=== PATIENT | female | born 1965 | race Hispanic/Latino ===

== ENCOUNTER 2018-07-02 08:45 | Emergency (ER) | payer OTHER ==
[~2018-07-02] VITALS: Ht 149.9 cm; Wt 77.1 kg
--- OUTSIDE RECORDS SUMMARY | 2018-07-02 08:48 | XMS REPORT | Summary of Care ---
Author Author [facility] Organization [facility] Address Unknown Phone Unavailable Encounter HQ Ronna(FIN) [id number] Date(s): 04/30/17 - 05/01/17 [facility] [address], [address] [place] [address] [phone] Vital Signs No data available for this section Problem List Condition Effective Dates Status Health Status Informant Body mass index Active (BMI) of 34.0 to 34.9 in adult(Confirmed) Acute Active diverticulitis(Confi rmed) H/O laparoscopic Active adjustable gastric banding(Confirmed)1 History of colonic Active polyps(Confirmed) Type 2 diabetes Active mellitus with hyperglycemia(Confir med) Hypertriglyceridemia Active (Confirmed) Urinary Active frequency(Confirmed) Insomnia(Confirmed) Active Headache, Resolved migraine(Confirmed) Obesity(Confirmed) Active Pain of right upper Active extremity(Confirmed) Palpitations(Confirm Resolved ed) Annual physical Active exam(Confirmed) 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) Screening for colon Active cancer(Confirmed) Thyroid disorder Active screen(Confirmed) Depression, major, Active single episode, moderate(Confirmed) Calcium oxalate Active crystals in urine(Confirmed) 1lap band Allergies, Adverse Reactions, Alerts Substance Reaction Severity Status losartan back pain Active Medications No data available for this section Results No data available for this section Immunizations No data available for this section Procedures Procedure Date Related Diagnosis Body Site Status Screening mammography of bilateral breasts1 07/18/17 Completed Repair of rectocele 02/27/17 Completed Colonoscopy2 10/16/16 Completed Screening mammography3 03/27/16 Completed Laparoscopic adjustable gastric banding 2013 Completed Arthroscopy of knee4 Completed Bilateral tubal ligation Completed Cholecystectomy Completed Hysterectomy Completed Procedure on elbow joint5 Completed 1IMPRESSION: BENIGN RECOMMENDATION:There is no mammographic evidence of malignancy. A 1 year screeni ng mammogram is recommended.(07/19/2018) 2severe diverticulosis, hemorrhoids, repeat 10 years 3negative 4Right knee 5Right elbow Social History Social History Type Response Substance Abuse Use: None. Employment/School Status: Employed. 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 Alcohol Never, Previous treatment: None. Smoking Status Never smoker; Exposure to Tobacco Smoke None; Cigarette Smoking Last 365 Days No; Reg Smoking Cessation Counseling No entered on: 05/07/17 Assessment and Plan No data available for this section
--- OUTSIDE RECORDS SUMMARY | 2018-07-02 08:48 | XMS REPORT | Summary of Care ---
Author Author [facility] Organization [facility] Address Unknown Phone Unavailable Encounter HQ Ronna(FIN) [id number] Date(s): 05/29/18 - 05/30/18 [facility] [address], [address] [place], [place] [address]- [phone] Vital Signs No data available for this section Problem List Condition Effective Dates Status Health Status Informant Body mass index Active (BMI) of 34.0 to 34.9 in adult(Confirmed) Leg Active cramps(Confirmed) Depression(Confirmed Resolved ) Acute Resolved diverticulitis(Confi rmed) Epigastric Active fullness(Confirmed) Grieving(Confirmed) Active H/O laparoscopic Active adjustable gastric banding(Confirmed)1 History of colonic Active polyps(Confirmed) Hypertriglyceridemia Active (Confirmed) Hypertriglyceridemia Active (Confirmed) Insomnia(Confirmed) Active Low back Active pain(Confirmed) Headache, Resolved migraine(Confirmed) Disrupted sleep-wake Active cycle(Confirmed) Obesity(Confirmed) Active Palpitations(Confirm Resolved ed) Encounter for Active immunization(Confirm ed) Annual physical Active exam(Confirmed) Prolapse of female Resolved pelvic organs(Confirmed) Screening for colon Active cancer(Confirmed) Depression, major, Active single episode, moderate(Confirmed) Type 2 diabetes Active mellitus without complications(Confir med) Calcium oxalate Resolved crystals in urine(Confirmed) Vitamin D Active deficiency(Confirmed ) 1lap band Allergies, Adverse Reactions, Alerts Substance Reaction Severity Status sulfa drugs Active nystatin Active losartan back pain Active Medications fenofibrate 54 mg oral tablet =1 tab, PO, Daily, # 90 tab, 1 Refill(s), Pharmacy: [facility] [place] [id number] Start Date: 05/29/18 Status: Ordered metFORMIN 1000 mg oral tablet 1,000 mg, PO, BID, # 180 tab, 1 Refill(s), Pharmacy: [facility] [place] [id number] Start Date: 05/29/18 Stop Date: 11/25/18 Status: Ordered Results No data available for this section Immunizations Given and Recorded Vaccine Date Status Refusal Reason influenza virus vaccine, inactivated1 01/21/18 Given 1Result Comment: Patient waited 15 min with no reaction. Procedures Procedure Date Related Diagnosis Body Site Status Removal of gastric band1 03/28/18 Completed Esophagogastroduodenoscopy2 03/14/18 Completed Influenza vaccination 01/21/18 Completed Screening mammography of bilateral breasts3 07/18/17 Completed Diabetic retinal eye exam4 2017 Completed Repair of rectocele 02/27/17 Completed Colonoscopy5 10/16/16 Completed Screening mammography6 03/27/16 Completed Laparoscopic adjustable gastric banding 2013 Completed Arthroscopy of knee Completed Bilateral tubal ligation Completed Cholecystectomy Completed Hysterectomy Completed Procedure on elbow joint8 Completed 1PREOPERATIVE DIAGNOSES: Morbid obesity, obstructive sleep apnea, type 2 diabetes mellitus, hypercholeste rolemia, severe gastroesophageal reflux disease and dysphagia secondary to restr ictive gastric band device secondary to posterior gastric band slippage. POSTOPERATIVE DIAGNOSES: Morbid obesity, obstructive sleep apnea, type 2 diabetes mellitus, hypercholeste rolemia, severe gastroesophageal reflux disease and dysphagia secondary to restr ictive gastric band device secondary to posterior gastric band slippage, and ext ensive peritoneal adhesions. OPERATION: Laparoscopic removal of gastric band and gastric band port with lysis of extensi ve peritoneal adhesions. 2GERD/SUPERFICIAL HEMORRHAGIC GASTRITIS.HIATAL HERNIA 3IMPRESSION: BENIGN RECOMMENDATION:There is no mammographic evidence of malignancy. A 1 year screeni ng mammogram is recommended.(07/19/2018) 4[facility] (Dr. Zeng) 5severe diverticulosis, hemorrhoids, repeat 10 years 6negative 7Right knee 8Right elbow Social History Social History Type Response Substance Abuse Use: None. Employment/School Status: Employed. 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 Alcohol Never, Previous treatment: None. Smoking Status Never smoker; Exposure to Tobacco Smoke None; Cigarette Smoking Last 365 Days No; Reg Smoking Cessation Counseling No entered on: 05/27/18 Assessment and Plan No data available for this section
--- OUTSIDE RECORDS SUMMARY | 2018-07-02 08:48 | XMS REPORT | Summary of Care ---
Author Author [facility] Organization [facility] Address Unknown Phone Unavailable Encounter LORENZA Friend(AMY) [id number] Date(s): 07/30/17 - 07/30/17 [facility] [address] [place] [phone] Discharge Disposition: Home or Self Care Attending Physician: Titus Mcfarland MD Vital Signs No data available for this [...] Use: None. Employment/School Status: Employed. 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 Alcohol Never, Previous treatment: None. Smoking Status Never smoker; Exposure to Tobacco Smoke None; Cigarette Smoking Last 365 Days No; Reg Smoking Cessation Counseling No entered on: 05/07/17 Assessment and Plan No data available for this section
--- OUTSIDE RECORDS SUMMARY | 2018-07-02 08:48 | XMS REPORT | Summary of Care ---
Author Author [facility] Organization [facility] Address Unknown Phone Unavailable Encounter HQ Ronna(FIN) [id number] Date(s): 05/27/18 - 05/27/18 [facility] [address], [address] [place], [place] [address]- [phone] Discharge Disposition: Home or Self Care Attending Physician: Irish Jaramillo MD Vital Signs Most recent to 1 oldest [Reference Range]: Height 149.86 cm (05/27/18 1:52 PM) Temperature Oral 98 DegF [96.4-99.1 DegF] (05/27/18 1:52 PM) Blood Pressure 122/77 mmHg [90-140/60-90 mmHg] (05/27/18 1:52 PM) Respiratory Rate 16 BRMIN [14-20 BRMIN] (05/27/18 1:52 PM) Peripheral Pulse 71 bpm Rate [60-100 bpm] (05/27/18 1:52 PM) Weight 76.42 kg (05/27/18 1:52 PM) Body Mass Index 34.03 m2 (05/27/18 1:52 PM) Problem List Condition Effective Dates Status Health [...] Daily, # 90 tab, 1 Refill(s), Pharmacy: [facility] [id number] Start Date: 05/27/18 Stop Date: 05/29/18 Status: Completed metFORMIN 1000 mg oral tablet 1,000 mg, PO, BID, X 90 day, # 180 tab, 1 Refill(s), Pharmacy: [facility] [id number] Start Date: 05/27/18 Stop Date: 05/29/18 Status: Completed Trulicity Pen 0.75 mg/0.5 mL subcutaneous solution 0.75 mg, SUB-Q, Q7D, # 12 pen(s), 1 Refill(s), Pharmacy: [facility] [id number] Start Date: 05/27/18 Status: Ordered Trulicity Pen 0.75 mg/0.5 mL subcutaneous solution 0.75 mg, SUB-Q, Q7D, # 12 pen(s), 1 Refill(s), Pharmacy: [facility] [id number] Start Date: 03/29/18 Stop Date: 05/27/18 Status: Discontinued zolpidem 10 mg oral tablet 10 mg=1 tab, PO, Bedtime, PRN for sleep, # 30 tab, 0 Refill(s) Start Date: 05/27/18 Stop Date: 05/27/19 Status: Ordered Results No data available for [...] bilateral breasts3 07/18/17 Completed Diabetic retinal eye exam2017 Completed Repair of rectocele 02/27/17 Completed Colonoscopy5 10/16/16 Completed Screening mammography6 03/27/16 Completed Laparoscopic adjustable gastric banding 2013 Completed Arthroscopy of knee7 Completed Bilateral tubal ligation Completed Cholecystectomy Completed [...] Use: None. Employment/School Status: Employed. 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 Alcohol Never, Previous treatment: None. Smoking Status Never smoker; Exposure to Tobacco Smoke None; Cigarette Smoking Last 365 Days No; Reg Smoking Cessation Counseling No entered on: 05/27/18 Assessment and Plan No data available for this section
--- OUTSIDE RECORDS SUMMARY | 2018-07-02 08:48 | XMS REPORT | Summary of Care ---
Author Author [facility] Organization [facility] Address Unknown Phone Unavailable Encounter HQ Ronna(FIN) [id number] Date(s): 08/22/17 - 08/23/17 [facility] [address], [address] [place] [address]- [phone] Vital Signs No data available for this [...] Severity Status losartan back pain Active Medications acetaminophen-tramadol 325 mg-37.5 mg oral tablet 1 tab, PO, Q8H, PRN Pain, # 40 tab, 0 Refill(s) Start Date: 08/23/17 Stop Date: 08/23/18 Status: Ordered Trulicity Pen 0.75 mg/0.5 mL subcutaneous solution 0.75 mg, SUB-Q, Q7D, # 12 pen(s), 2 Refill(s), Pharmacy: [facility] [id number] Start Date: 08/23/17 Status: Ordered Results No data available for [...] Use: None. Employment/School Status: Employed. 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 Alcohol Never, Previous treatment: None. Smoking Status Never smoker; Exposure to Tobacco Smoke None; Cigarette Smoking Last 365 Days No; Reg Smoking Cessation Counseling No entered on: 05/07/17 Assessment and Plan No data available for this section
--- OUTSIDE RECORDS SUMMARY | 2018-07-02 08:48 | XMS REPORT | Summary of Care ---
Author Author [facility] Organization [facility] Address Unknown Phone Unavailable Encounter LORENZA Friend(AMY) [id number] Date(s): 07/18/17 - 07/18/17 [facility] [address] [place] [phone] Discharge Disposition: Home or Self Care Attending Physician: Irish Jaramillo MD Vital Signs No data available for [...] Procedure Date Related Diagnosis Body Site Status Repair of rectocele 02/27/17 Completed Colonoscopy1 10/16/16 Completed Screening mammography2 03/27/16 Completed Laparoscopic adjustable gastric banding 2013 Completed Arthroscopy of knee3 Completed Bilateral tubal ligation Completed Cholecystectomy Completed Hysterectomy Completed Procedure on elbow joint4 Completed 1severe diverticulosis, hemorrhoids, repeat 10 years 2negative 3Right knee 4Right elbow Social History Social History Type Response Substance Abuse Use: None. Employment/School Status: Employed. 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 Alcohol Never, Previous treatment: None. Smoking Status Never smoker; Exposure to Tobacco Smoke None; Cigarette Smoking Last 365 Days No; Reg Smoking Cessation Counseling No entered on: 05/07/17 Assessment and Plan No data available for this section
--- OUTSIDE RECORDS SUMMARY | 2018-07-02 08:48 | XMS REPORT | Summary of Care ---
Author Author [facility] Organization [facility] Address Unknown Phone Unavailable Encounter HQ Ronna(FIN) [id number] Date(s): 06/27/18 - 06/28/18 [facility] [address] [place] [address] Vital Signs No data available for this section Problem List Condition Effective Dates Status Health Status Informant Acute Active bronchitis(Confirmed ) Body mass index Active (BMI) of 34.0 to 34.9 in adult(Confirmed) Leg Active cramps(Confirmed) Acute Resolved diverticulitis(Confi rmed) Dysuria(Confirmed) Active Grieving(Confirmed) Active H/O laparoscopic Resolved adjustable gastric banding(Confirmed)1 History of colonic Active polyps(Confirmed) Hypertriglyceridemia Active (Confirmed) Insomnia(Confirmed) Active Low back Active pain(Confirmed) Headache, Resolved migraine(Confirmed) Disrupted sleep-wake Active cycle(Confirmed) Obesity(Confirmed) Active Palpitations(Confirm Resolved ed) Encounter for Active immunization(Confirm ed) Annual physical Active exam(Confirmed) Prolapse of female Resolved pelvic organs(Confirmed) Right flank Active pain(Confirmed) Screening for colon Active cancer(Confirmed) Depression, major, Active single episode, moderate(Confirmed) Type 2 diabetes Active mellitus without complications(Confir med) Calcium oxalate Resolved crystals in urine(Confirmed) Vitamin D Active deficiency(Confirmed ) 1lap band Allergies, Adverse Reactions, Alerts Substance Reaction Severity Status sulfa drugs Active nystatin Active losartan back pain Active Medications No data [...] year screeni ng mammogram is recommended.(07/19/2018) 4[facility] (Dr. Zeng) 5severe diverticulosis, hemorrhoids, repeat 10 years 6negative 7Right knee 8Right elbow Social History Social History Type Response Substance Abuse Use: None. Employment/School Status: Employed. 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 Alcohol Never, Previous treatment: None. Smoking Status Never smoker; Exposure to Tobacco Smoke None; Cigarette Smoking Last 365 Days No; Reg Smoking Cessation Counseling No entered on: 06/30/18 Assessment and Plan No data available for this section
--- OUTSIDE RECORDS SUMMARY | 2018-07-02 08:48 | XMS REPORT | Summary of Care ---
Author Author [facility] Organization [facility] Address Unknown Phone Unavailable Encounter HQ Ronna(FIN) [id number] Date(s): 05/07/17 - 05/07/17 [facility] [address], [address] [place] [address] [phone] Discharge Disposition: Home or Self Care Attending Physician: Irish Jaramillo MD Vital Signs Most recent to 1 oldest [Reference Range]: Height 149.86 cm (05/07/17 1:42 PM) Temperature Oral 97.3 DegF [96.4-99.1 DegF] (05/07/17 1:42 PM) Blood Pressure 116/77 mmHg [90-140/60-90 mmHg] (05/07/17 1:42 PM) Respiratory Rate 16 BRMIN [14-20 BRMIN] (05/07/17 1:42 PM) Peripheral Pulse 80 bpm Rate [60-100 bpm] (05/07/17 1:42 PM) Weight 78.636 kg (05/07/17 1:42 PM) Body Mass Index 35.01 m2 (05/07/17 1:42 PM) Problem List Condition Effective Dates Status [...] Severity Status losartan back pain Active Medications lisinopril 5 mg oral tablet 5 mg=1 tab, PO, Daily, # 90 tab, 1 Refill(s), Pharmacy: [facility] [id number] Start Date: 05/07/17 Stop Date: 11/03/17 Status: Ordered Trulicity Pen 0.75 mg/0.5 mL subcutaneous solution 0.75 mg, SUB-Q, Q7D, # 4 pen(s), 3 Refill(s), Pharmacy: [facility] [id number] Start Date: 05/07/17 Status: Ordered Voltaren Topical 1% topical gel 4 gm=1 appl, TOP, BID, Apply 4 grams to right shoulder/arm, # 100 gm, 0 Refill(s ), Pharmacy: [facility] [id number] Start Date: 05/07/17 Status: Ordered Results No data available for [...] Use: None. Employment/School Status: Employed. 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 Alcohol Never, Previous treatment: None. Smoking Status Never smoker; Exposure to Tobacco Smoke None; Cigarette Smoking Last 365 Days No; Reg Smoking Cessation Counseling No entered on: 05/07/17 Assessment and Plan No data available for this section
--- OUTSIDE RECORDS SUMMARY | 2018-07-02 08:48 | XMS REPORT | Summary of Care ---
Author Author [facility] Organization [facility] Address Unknown Phone Unavailable Encounter HQ Ronna(FIN) [id number] Date(s): 04/30/17 - 05/01/17 [facility] [address] [place] [address] [phone] Vital Signs No data available for this [...] Severity Status losartan back pain Active Medications DME Prescription Glucometer strips. Check blood sugar twice daily., MISC, BID, # 100 ea, 5 Refill (s) Start Date: 05/02/17 Status: Ordered Results No data available for [...] Use: None. Employment/School Status: Employed. 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 Alcohol Never, Previous treatment: None. Smoking Status Never smoker; Exposure to Tobacco Smoke None; Cigarette Smoking Last 365 Days No; Reg Smoking Cessation Counseling No entered on: 05/07/17 Assessment and Plan No data available for this section
--- OUTSIDE RECORDS SUMMARY | 2018-07-02 08:48 | XMS REPORT | Summary of Care ---
Author Author [facility] Organization [facility] Address Unknown Phone Unavailable Encounter HQ Ronna(FIN) [id number] Date(s): 05/07/17 - 05/07/17 [facility] [address], [address] [place], [place] [address]- [phone] Discharge Disposition: Home or Self Care Attending [...] Daily, # 90 tab, 1 Refill(s), Pharmacy: [facility] [id number] Start Date: 05/07/17 Stop Date: 11/03/17 Status: Ordered Trulicity Pen 0.75 mg/0.5 mL subcutaneous solution 0.75 mg, SUB-Q, Q7D, # 4 pen(s), 3 Refill(s), Pharmacy: [facility] [id number] Start Date: 05/07/17 Status: Ordered Voltaren Topical 1% topical gel 4 gm=1 appl, TOP, BID, Apply 4 grams to right shoulder/arm, # 100 gm, 0 Refill(s ), Pharmacy: [facility] [id number] Start Date: 05/07/17 Status: Ordered Results No [...] Use: None. Employment/School Status: Employed. 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 Alcohol Never, Previous treatment: None. Smoking Status Never smoker; Exposure to Tobacco Smoke None; Cigarette Smoking Last 365 Days No; Reg Smoking Cessation Counseling No entered on: 05/07/17 Assessment and Plan No data available for this section
--- OUTSIDE RECORDS SUMMARY | 2018-07-02 08:48 | XMS REPORT | Continuity of Care Document ---
Author Author Yolanda greer [facility] Interface Address Unknown Phone Unavailable Problems Problem Status Onset Date Classification Date Reported Comments Source Z029 Active 04/14/2018 [facility] UNK Active 03/18/2018 [facility] Z12.31 - ENCNTR SCREEN MAMMOGRAM FOR MA Active 03/18/2017 [facility] [place] LAPBAND CHECK Active 07/20/2016 [facility] DX: LAPBAND/OVEREATING RORO'S PATIEN Active 06/26/2016 [facility] DX:LAPBAND/OVEREATING RORO'S PATIENT Active 06/25/2016 [facility] LAP BAND ADJ Active 04/12/2016 [facility] F/U Active 04/10/2016 [facility] LAPBAND ADJ Active 03/01/2016 [facility] E66.01=MORBID (SEVERE) OBESITY DUE TO EX Active 11/14/2015 [facility] Body mass index of 34.0 to 34.9 in adult(<span ID="[id number]">Confirmed</span>) Active Problem 06/30/2018 [facility] Acute diverticulitis Resolved Problem 06/30/2018 [facility]KE Greer Araseli H/O laparoscopic adjustable gastric banding<sup>1</sup> Resolved Problem 06/30/2018 lap band [facility] History of colonic polyps Active Problem 06/30/2018 [facility] Type 2 diabetes mellitus with hyperglycemia Active Problem 08/26/2017 [facility] Gre[facility] Hypertriglyceridemia Active Problem 06/30/2018 [facility] Gre[facility] Urinary frequency Active Problem 09/23/2017 [facility]OO[facility] Greer Araseli Insomnia Active Problem 06/30/2018 [facility] Headache, migraine Resolved Problem 06/30/2018 [facility] [place] Obesity Active Problem 06/30/2018 [facility], RAFA[facility] [place],[facility] [place] Pain of right upper extremity Active Problem 09/23/2017 [facility] [place] Palpitations Resolved Problem 06/30/2018 [facility] BROOKE Greer,[facility], [facility] [place] Prolapse of female pelvic organs Resolved Problem 06/30/2018 [facility] [place] Screening for colon cancer Active [facility]/30[facility] Active Problem 09/23/2017 [facility] [place] Depression, major, single episode, moderate Active Problem 06/30/2018 [facility]OO[facility] Greer,[facility], [facility] [place] Calcium oxalate crystals in urine Resolved Problem 06/30/2018 [facility] [place] Diverticulitis Resolved Problem 06/23/2016 [facility] [place] H/O: HTN (<span ID="[id number]">Confirmed</span>) Resolved Problem 06/23/2016 [facility] [place] Plantar fasciitis of right foot Active Problem 06/23/2016 [facility] [place] Diabetes mellitus type 2, controlled, without complications Active Problem 08/04/2016 [facility] [place] Leg cramps Active Problem 06/30/2018 [facility] Low back pain Active Problem 06/30/2018 [facility] Type 2 diabetes mellitus without complications Active Problem 06/30/2018 [facility] Vitamin D deficiency Active Problem 06/30/2018 [facility] Depression Resolved Problem 06/02/2018 [facility] Epigastric fullness Active Problem 06/02/2018 [facility] Grieving Active Problem 06/30/2018 [facility] Disrupted sleep-wake cycle Active Problem 06/30/2018 [facility] Encounter for immunization Active Problem 06/30/2018 [facility] Diabetes Active Problem 05/12/2018 [facility] [place] Acute bronchitis Active Problem 06/30/2018 [facility] Dysuria Active Problem 06/30/2018 [facility] Right flank pain Active Problem 06/30/2018 [facility] Medications Medication Details Route Status Patient Instructions Ordering Provider Order Date Source 200 ACTUAT Albuterol 0.09 MG/ACTUAT Metered Dose Inhaler [ProAir HFA] 2 puff, INHALER, Q6H, PRN wheezing, coughing, or shortness of breath, # 1 ea, 0 Refill(s), given to patient Active 06/10/2018 [facility] Codeine Phosphate 2 MG/ML / Guaifenesin 20 MG/ML Oral Solution [Cheratussin] 5 ml, PO, Q6H, PRN for cough and congestion, # 120 mL, 0 Refill(s) Active 06/10/2018 [facility] Azithromycin 5 Day Dose Pack 250 mg oral tablet See Instructions, Take 2 tablets by mouth the first day then 1 tablet by mouth days 2-5., X 5 day, # 6 tab, 0 Refill(s), Pharmacy: [place] [id number] Active 06/10/2018 [facility] Metformin hydrochloride 1000 MG Oral Tablet 1,000 mg, PO, BID, # 180 tab, 1 Refill(s), Pharmacy: [place] [address] Active 05/29/2018 [facility] Fenofibrate 54 MG Oral Tablet =1 tab, PO, Daily, # 90 tab, 1 Refill(s), Pharmacy: [place] [address] Active 05/29/2018 [facility] 0.5 ML dulaglutide 1.5 MG/ML Prefilled Syringe [Trulicity] 0.75 mg, SUB-Q, Q7D, # 12 pen(s), 1 Refill(s), Pharmacy: [place] [address] Active 05/27/2018 [facility] Fenofibrate 54 MG Oral Tablet =1 tab, PO, Daily, # 90 tab, 1 Refill(s), Pharmacy: [place] [address] No Longer Active 05/27/2018 [facility] Metformin hydrochloride 1000 MG Oral Tablet 1,000 mg, PO, BID, X 90 day, # 180 tab, 1 Refill(s), Pharmacy: [place] [address] No Longer Active 05/27/2018 [facility] zolpidem 10 mg oral tablet 10 mg=1 tab, PO, Bedtime, PRN for sleep, # 30 tab, 0 Refill(s) Active 05/27/2018 [facility] 0.5 ML dulaglutide 1.5 MG/ML Prefilled Syringe [Trulicity] 0.75 mg, SUB-Q, Q7D, # 12 pen(s), 1 Refill(s), Pharmacy: [place] [address] No Longer Active 03/29/2018 [facility] lisinopril 5 mg oral tablet 5 mg=1 tab, PO, Daily, # 90 tab, 1 Refill(s), Pharmacy: [place] [address] Active 12/03/2017 [facility] Fenofibrate 54 MG Oral Tablet 54 mg=1 tab, PO, Daily, # 90 tab, 1 Refill(s), Pharmacy: [place] [address] Active 09/17/2017 [facility] Metformin hydrochloride 1000 MG Oral Tablet 1,000 mg=1 tab, PO, BID, # 180 tab, 1 Refill(s), Pharmacy: [place] [address] Active 09/17/2017 [facility] 0.5 ML dulaglutide 1.5 MG/ML Prefilled Syringe [Trulicity] 0.75 mg, SUB-Q, Q7D, # 12 pen(s), 2 Refill(s), Pharmacy: [place] [address] Active 08/23/2017 [facility] Acetaminophen 325 MG / tramadol hydrochloride 37.5 MG Oral Tablet 1 tab, PO, Q8H, PRN Pain, # 40 tab, 0 Refill(s) Active 08/23/2017 [facility] lisinopril 5 mg oral tablet 5 mg=1 tab, PO, Daily, # 90 tab, 1 Refill(s), Pharmacy: [place] [address] Active 05/07/2017 [facility] 0.5 ML dulaglutide 1.5 MG/ML Prefilled Syringe [Trulicity] 0.75 mg, SUB-Q, Q7D, # 4 pen(s), 3 Refill(s), Pharmacy: [place] [address] Active 05/07/2017 [facility] Diclofenac Sodium 0.01 MG/MG Topical Gel [Voltaren] 4 gm=1 appl, TOP, BID, Apply 4 grams to right shoulder/arm, # 100 gm, 0 Refill(s), Pharmacy: [place] [address] Active 05/07/2017 [facility] Prescription Glucometer strips. Check blood sugar twice daily., MISC, BID, # 100 ea, 5 Refill(s) Active 05/02/2017 [facility] Sodium Chloride 0.154 MEQ/ML Injectable Solution 1,000 mL, Rate: 25 ml/hr, Infuse over: 40 hr, Route: IV, Dosing Weight 75.909 kg, Total Volume: 1,000, Start date: 11/07/15 8:40:00 CDT, Duration: 30 day, Stop date: 12/07/15 8:39:00 CDT Inactive 11/07/2015 [facility] Allergies, Adverse Reactions, Alerts Substance Category Reaction Severity Reaction type Status Date Reported Comments Source losartan Assertion back pain Propensity to adverse reactions to drug Active [facility] sulfa drugs Assertion Drug allergy Active [facility] nystatin Assertion Drug allergy Active [facility] Immunizations Immunization Date Given Site Status Last Updated Comments Source influenza virus vaccine, inactivated<sup>1</sup> 01/21/2018 Left Deltoid completed [place] Result Comment: Patient waited 15 min with no reaction. [facility] Results Order Name Results Value Reference Range Date Interpretation Comments Source Abdomen wo IV contrast CT Abdomen wo IV contrast CT Patient Name: SELENA BELCHER : 1965; Age: 52 years Female MR: [id number] Study: Abdomen wo IV contrast CT 04/15/2018 7:39 DOCUMENTATION LIAISON CLINICAL INDICATION: - Abdominal pain, recent lap band removal COMPARISON: None TECHNIQUE: Multidetector CT imaging of the abdomen WITHOUT IV contrast. Coronal and sagittal reconstructions were generated and reviewed. CT imaging performed at this location utilizes radiation dose optimization techniques which include one or more of the following: -Automated exposure control -Adjustment of the mA and/or kV according to patient size -Use of iterative reconstruction technique Radiation dose: 474 mGycm Oral contrast: 50 mL of Omnipaque FINDINGS: Lower thorax: Clear. Hepatobiliary: Hepatic steatosis. Cholecystectomy. Pancreas: No focal mass or ductal dilatation. Spleen: No splenomegaly. Adrenals: No nodules. Kidneys: Nonobstructive 4 mm calculus within the superior left kidney. No hydronephrosis. Peritoneum/Retroperitoneum: No free air or free fluid. Lymph nodes: No lymphadenopathy. Vessels: Unremarkable. GI: No significant bowel thickening or dilatation. Sigmoid diverticulosis. The appendix appears unremarkable. Normal appearance of the stomach without evidence of significant stricture or residual lap band. Bones and soft tissues: Postoperative changes within the anterior abdominal wall. Small fluid collection (4.1 x 1.9 cm) within the midline abdomen with imperceptible menjivar. IMPRESSION: Postoperative changes within the anterior abdominal wall compatible with history of recent lap band removal. Small fluid collection (4.1 x 1.9 cm) within the midline abdomen likely represents a seroma. Nonobstructive left nephrolithiasis. Hepatic steatosis. Sigmoid diverticulosis. SL: [id number] 04/15/2018 - - Read by: Mario Rucker MD Dictated Date/time: 04/15/18 10:00 Electronically Signed by: Mario Rucker MD 04/15/18 10:11 FINAL REPORT [facility] Chest 1view DX Chest 1view DX Patient Name: SELENA BELCHER : 1965; Age: 52 years Female MR: [id number] Study: Chest 1view DX Order Time: 03/14/2018 12:00 DOCUMENTATION LIAISON CLINICAL INDICATION: Abnormal chest sounds - . COMPARISON: Chest radiograph on 07/16/2012 FINDINGS: Lines: None. Lungs: The lungs are grossly clear. Mediastinum: The cardiac silhouette is within normal limits of size. Midline trachea. Bones and soft tissues: No acute abnormalities. Gastric lap band device appears in normal orientation. IMPRESSION: No acute cardiopulmonary abnormalities. SL: [id number] 03/14/2018 - - Read by: Mario Rucker MD Dictated Date/time: 03/14/18 14:19 Electronically Signed by: Mario Rucker MD 03/14/18 14:19 FINAL REPORT [facility] Shoulder wo contrast MRI Shoulder wo contrast MRI EXAM: MR RIGHT SHOULDER WITHOUT CONTRAST DATE: 07/30/2017 2:20 PM CDT INDICATION: - rotator cuff syndrome, right shoulder pain since December 2016, no acute injury, no prior surgeries. COMPARISON: None. TECHNIQUE: Axial, oblique coronal, and oblique sagittal MR images of the shoulder. IV contrast: None. FINDINGS: ROTATOR CUFF AND ASSOCIATED STRUCTURES Rotator cuff: The supraspinatus, infraspinatus, teres minor and subscapularis tendons are intact. There is moderate tendinosis of the supraspinatus and infraspinatus with articular and bursal sided fraying. Moderate thickening and increased signal of the superior subscapularis. Musculature: There is no muscular tear, contusion, or atrophy. Bursa: Small amount of fluid in the subacromial and subdeltoid bursa. Acromioclavicular joint: There are moderate degenerative changes of the acromioclavicular joint. A type 2 acromion configuration is noted. There is no anterior or lateral acromial downsloping. GLENOHUMERAL JOINT Labrum: Intact. No paralabral cysts Cartilage: No focal defect. Ligaments: No glenohumeral or other ligamentous abnormality Joint fluid: There is no glenohumeral joint effusion. LONG BICIPITAL TENDON The biceps tendon is intact, and within the bicipital groove. There is mild amount of fluid along the long head of the biceps tendon with thickening and increased signal in the intra-articular long head of biceps indicative of tendinosis and tenosynovitis. OSSEOUS STRUCTURES There are cystic changes noted of the posterosuperior humeral head. No fracture. Visualized bone marrow signal is normal. OTHER FINDINGS: Nonspecific subcentimeter right axillary lymph node is likely reactive. IMPRESSION: 1. Moderate supraspinatus and infraspinatus tendinosis with articular and bursal sided fraying. 2. Mild intra-articular long head biceps tendinosis and extra articular tenosynovitis. 3. Moderate tendinosis of the superior subscapularis. 4. Moderate AC joint osteoarthrosis and mild subacromial subdeltoid bursitis. 07/30/2017 - - This report was dictated by a [employer] Dean/Fellow. I have personally reviewed the images as well as the Resident's interpretation and agree with the findings. Read by: Lizzy Archer MD Resident: Lizzy Archer MD Dictated Date/time: 07/31/17 08:21 Electronically Signed by: Maci Shields MD 08/01/17 09:54 FINAL REPORT [facility] Breast Mammo Scrn AMARI incl CAD MA Breast Mammo Scrn AMARI incl CAD MA BILATERAL DIGITAL SCREENING MAMMOGRAM WITH CAD: 07/18/2017 CLINICAL: Screening/Screening. Current study was evaluated with a Computer Aided Detection (CAD) system. COMPARISON:Comparison is made to exams dated: 03/27/2016 mammogram - [facility], 04/14/2015 mammogram, 04/07/2015 mammogram, 03/15/2015 mammogram, 01/26/2014 mammogram, and 03/10/2013 mammogram - [facility]. TECHNIQUE: Mammographic views were obtained using digital acquisition. Current study was also evaluated with a Computer Aided Detection (CAD) system. FINDINGS: The tissue of both breasts is almost entirely fat. There is a benign-appearing calcification in the right breast. No significant masses, calcifications, or other findings are seen in either breast. There has been no significant interval change. IMPRESSION: BENIGN RECOMMENDATION:There is no mammographic evidence of malignancy. A 1 year screening mammogram is recommended.(07/19/2018) This exam was interpreted at [id number] for [facility]. Meño Doe M.D. [facility]/:07/18/2017 12:45:55 Belt Measurer(s): RT [place](R)(M), [facility] Department letter sent: BI-RADS 1/2 Mammogram BI-RADS: 2 Benign 07/18/2017 - - Read by: Meño Doe MD Dictated Date/time: 07/18/17 12:45 Electronically Signed by: Meño Doe MD 07/18/17 12:45 FINAL REPORT [facility] Digital Mammo Screening Amari MA Digital Mammo Screening Amari MA - DIGITAL MAMMO SCREENING AMARI MA BILATERAL DIGITAL SCREENING MAMMOGRAM WITH CAD: 03/27/2016 CLINICAL: Routine. Current study was evaluated with a Computer Aided Detection (CAD) system. Comparison is made to exams dated: 04/14/2015 mammogram, 04/07/2015 mammogram, 03/15/2015 mammogram, 01/26/2014 mammogram, 03/10/2013 mammogram and 01/15/2012 mammogram - [facility]. The tissue of both breasts is almost entirely fat. There are benign calcifications in both breasts. No significant masses, calcifications, or other findings are seen in either breast. There has been no significant interval change. IMPRESSION: BENIGN There is no mammographic evidence of malignancy. A 1 year screening mammogram is recommended. Professional services are provided by the [facility]. Rodolfo Rowley M.D., cm/brenda:03/28/2016 11:04:36 Belt Measurer: Ana CAGLE(R)(M), [facility] This exam was dictated and interpreted by [id number] for ALETA Amin. letter sent: Normal exam Mammogram BI-RADS: 2 Benign 03/27/2016 - - Read by: Juan Neves MD Dictated Date/time: 03/28/16 11:04 Electronically Signed by: Juan Neves MD 03/28/16 11:04 FINAL REPORT [facility] CHEM PANEL eGFR 123 mL/min/1.73m2 11/04/2015 Result Comment: The eGFR is calculated using the CKD-EPI formula. In most young, healthy individuals the eGFR will be >90 mL/min/1.73m2. The eGFR declines with age. An eGFR of 60-89 may be normal in some populations, particularly the elderly, for whom the CKD-EPI formula has not been extensively validated. Use of the eGFR is not recommended in the following populations: Individuals with unstable creatinine concentrations, including patients and those with serious co-morbid conditions. Patients with extremes in muscle mass or diet. The data above are obtained from the National Kidney Disease Education Program (NKDEP) which additionally recommends that when the eGFR is used in patients with extremes of body mass index for purposes of drug dosing, the eGFR should be multiplied by the estimated BMI. [facility] CHEM PANEL Creatinine Lvl 0.39 mg/dL 0.50 - 1.40 11/04/2015 [facility] CHEM PANEL Potassium Lvl 3.7 meq/L 3.5 - 5.1 11/04/2015 [facility] CHEM PANEL Sodium Lvl 140 meq/L 135 - 145 11/04/2015 [facility] CHEM PANEL CO2 25 meq/L 24 - 32 11/04/2015 [facility] CHEM PANEL Calcium Lvl 8.3 mg/dL 8.5 - 10.5 11/04/2015 [facility] CHEM PANEL Chloride Lvl 108 meq/L 95 - 109 11/04/2015 [facility] CHEM PANEL BUN 7 mg/dL 7 - 22 11/04/2015 [facility] CHEM PANEL Glucose Lvl 125 mg/dL 70 - 99 11/04/2015 [facility] CHEM PANEL AGAP 10.7 meq/L 10.0 - 20.0 11/04/2015 [facility] HEMATOLOGY WBC 7.9 K/CMM 3.7 - 10.4 11/04/2015 [facility] HEMATOLOGY Hgb 12.6 g/dL 12.0 - 16.0 11/04/2015 [facility] HEMATOLOGY RBC 4.39 M/CMM 4.20 - 5.40 11/04/2015 [facility] HEMATOLOGY Hct 38.0 % 36.0 - 48.0 11/04/2015 [facility] HEMATOLOGY MCH 28.8 pg 27.0 - 31.0 11/04/2015 [facility] HEMATOLOGY MCV 86.6 fL 80.0 - 98.0 11/04/2015 [facility] HEMATOLOGY RDW 13.9 % 11.5 - 14.5 11/04/2015 [facility] HEMATOLOGY MCHC 33.2 g/dL 32.0 - 36.0 11/04/2015 [facility] HEMATOLOGY MPV 8.8 fL 7.4 - 10.4 11/04/2015 [facility] HEMATOLOGY Platelet 284 K/CMM 133 - 450 11/04/2015 [facility] HEMATOLOGY Monocytes # 0.5 K/CMM 0.0 - 0.8 11/04/2015 [facility] HEMATOLOGY Eosinophils # 0.1 K/CMM 0.0 - 0.5 11/04/2015 [facility] HEMATOLOGY Eosinophils 1.0 % 0.0 - 4.0 11/04/2015 [facility] HEMATOLOGY Monocytes 5.8 % 2.0 - 12.0 11/04/2015 [facility] HEMATOLOGY Lymphocytes 31.5 % 20.0 - 40.0 11/04/2015 [facility] HEMATOLOGY Lymphocytes # 2.5 K/CMM 1.0 - 5.5 11/04/2015 [facility] HEMATOLOGY Segs-Bands # 4.8 K/CMM 1.5 - 8.1 11/04/2015 [facility] HEMATOLOGY Basophils 0.5 % 0.0 - 1.0 11/04/2015 [facility] HEMATOLOGY Segs 61.2 % 45.0 - 75.0 11/04/2015 [facility] Vital Signs Vital Sign Value Date Comments Source BMI Calculated 34.1 06/10/2018 [facility] Weight 76.591 06/10/2018 [facility] Height 149.86 cm 06/10/2018 [facility] Systolic (mm Hg) 109 06/10/2018 [facility] Diastolic (mm Hg) 72 06/10/2018 [facility] Temperature Oral (F) 98.1 F 06/10/2018 [facility] Respitory Rate 16 06/10/2018 [facility] Heart Rate 81 06/10/2018 [facility] BMI Calculated 34.03 05/27/2018 [facility] Height 149.86 cm 05/27/2018 [facility] Weight 76.42 05/27/2018 [facility] Respitory Rate 16 05/27/2018 [facility] Heart Rate 71 05/27/2018 [facility] Systolic (mm Hg) 122 05/27/2018 [facility] Diastolic (mm Hg) 77 05/27/2018 [facility] Temperature Oral (F) 98 F 05/27/2018 [facility] Weight 77.784 10/23/2017 [facility] BMI Calculated 34.64 10/23/2017 [facility] Height 149.86 cm 10/23/2017 [facility] Heart Rate 76 10/23/2017 [facility] Respitory Rate 16 10/23/2017 [facility] Temperature Oral (F) 98.4 F 10/23/2017 [facility] Systolic (mm Hg) 109 10/23/2017 [facility] Diastolic (mm Hg) 73 10/23/2017 [facility] Weight 77.727 09/17/2017 [facility] Height 149.86 cm 09/17/2017 [facility] BMI Calculated 34.61 09/17/2017 [facility] Systolic (mm Hg) 129 09/17/2017 [facility] Diastolic (mm Hg) 83 09/17/2017 [facility] Temperature Oral (F) 98.7 F 09/17/2017 [facility] Respitory Rate 16 09/17/2017 [facility] Heart Rate 74 09/17/2017 [facility] BMI Calculated 35.01 05/07/2017 [facility] Weight 78.636 05/07/2017 [facility] Height 149.86 cm 05/07/2017 [facility] Heart Rate 80 05/07/2017 [facility] Respitory Rate 16 05/07/2017 [facility] Temperature Oral (F) 97.3 F 05/07/2017 [facility] Systolic (mm Hg) 116 05/07/2017 [facility] Diastolic (mm Hg) 77 05/07/2017 [facility] Systolic (mm Hg) 117 11/07/2015 [facility] Diastolic (mm Hg) 68 11/07/2015 [facility] Respitory Rate 16 11/07/2015 [facility] Systolic (mm Hg) 107 11/07/2015 [facility] Diastolic (mm Hg) 68 11/07/2015 [facility] Respitory Rate 15 11/07/2015 [facility] Systolic (mm Hg) 99 11/07/2015 [facility] Diastolic (mm Hg) 59 11/07/2015 [facility] Respitory Rate 17 11/07/2015 [facility] Heart Rate 64 11/07/2015 [facility] Temperature Oral (F) 97.1 F 11/04/2015 [facility] Heart Rate 58 11/04/2015 [facility] Weight 75.909 11/04/2015 [facility] BMI Calculated 33.8 11/04/2015 [facility] Height 149.86 cm 11/04/2015 [facility] Encounters Location Location Details Encounter Type Encounter Number Reason For Visit Attending Provider ADM Date DC Date Status Source Outpatient [id number] GARETH GUEVARA 09/06/2015 Active [facility] Outpatient [id number] GARETH GUEVARA 10/18/2015 [facility] Bedded Outpatient [id number] Bhupendra Cespedes 11/07/2015 11/07/2015 [facility] Recurring [id number] Bhupendra Cespedes 11/29/2015 12/29/2015 [facility] Outpatient [id number] GARETH GUEVARA 12/13/2015 [facility] Recurring [id number] Bhupendra Cespedes 03/08/2016 04/07/2016 [facility] [place] [facility] [id number] Gareth Guevara 03/27/2016 03/28/2016 [facility] Recurring [id number] Bhupendra Cespedes 04/12/2016 05/12/2016 [facility] Recurring [id number] Bhupendra Cespedes 05/22/2016 06/21/2016 [facility] Recurring [id number] Roro Kayla 07/03/2016 08/02/2016 [facility] Outpatient [id number] GARETH GUEVARA 07/24/2016 Active [facility] Outpatient [id number] GARETH GUEVARA 07/24/2016 [facility] [id number] GARETH GUEVARA 08/07/2016 Active [facility] Outpatient [id number] GARETH GUEVARA 08/21/2016 Active [facility] Outpatient [id number] GARETH GUEVARA 10/25/2016 Active [facility] Outpatient [id number] GARETH GUEVARA 02/05/2017 Active [facility] Phone Message [id number] 04/30/2017 05/02/2017 [facility] Phone Message [phone] 04/30/2017 05/02/2017 [facility] Outpatient [id number] GARETH GUEVARA 05/07/2017 Active [facility] Outpatient [id number] Gareth Guevara 05/07/2017 05/08/2017 [facility] [place] Out[facility] [id number] Gareth Guevara 07/18/2017 07/19/2017 [facility] [place] [id number] Titus Mcfarland 07/30/2017 07/31/2017 [facility] [place] [facility] Primary Care [facility] Phone Message [phone] 08/22/2017 08/24/2017 [facility] Outpatient [id number] GARETH GUEVARA 09/17/2017 Active [facility] [place] [facility] Primary Care [facility] Outpatient [id number] Gareth Guevara 09/17/2017 09/18/2017 [facility] Primary Care [facility] Phone Message [id number] 09/20/2017 09/21/2017 [facility] Outpatient [id number] GARETH GUEVARA 10/23/2017 Active [facility] [place] Primary Care [facility] Outpatient [id number] Gareth Geuvara 10/23/2017 10/24/2017 [facility] Primary Care [facility] Phone Message [phone] 12/03/2017 12/04/2017 [facility] Outpatient [id number] GARETH GUEVARA 01/21/2018 Active [facility] [place] Outpatient [id number] GARETH GUEVARA 05/27/2018 Active [facility] [place] [facility] Primary Care [facility] Outpatient [id number] Gareth Guevara 05/27/2018 05/28/2018 [facility] Primary [facility] Between Visit [id number] 05/29/2018 05/30/2018 [facility] Between Visit [id number] 06/09/2018 06/10/2018 [facility] Outpatient [id number] GARETH GUEVARA 06/10/2018 [facility] Primary Care [facility] Outpatient [id number] Gareth Guevara 06/10/2018 06/11/2018 [facility] [place] Phone Message [id number] 06/27/2018 06/29/2018 [facility] Outpatient [id number] Gareth Guevara 06/30/2018 Active [facility] Outpatient [id number] Gareth Guevara 07/01/2018 Active [facility] Outpatient [id number] GARETH GUEVARA 09/09/2018 Active [facility] Procedures Procedure Code Date Perfomer Comments Source Removal of gastric band<sup>1</sup> [id number] 03/28/2018 PREOPERATIVE DIAGNOSES: Morbid obesity, obstructive sleep apnea, type 2 diabetes mellitus, hypercholesterolemia, severe gastroesophageal reflux disease and dysphagia secondary to restrictive gastric band device secondary to posterior gastric band slippage. POSTOPERATIVE DIAGNOSES: Morbid obesity, obstructive sleep apnea, type 2 diabetes mellitus, hypercholesterolemia, severe gastroesophageal reflux disease and dysphagia secondary to restrictive gastric band device secondary to posterior gastric band slippage, and extensive peritoneal adhesions. OPERATION: Laparoscopic removal of gastric band and gastric band port with lysis of extensive peritoneal adhesions. [facility] Esophagogastroduodenoscopy<sup>2</sup> [id number] 03/14/2018 GERD/SUPERFICIAL HEMORRHAGIC GASTRITIS.HIATAL HERNIA [facility] Esophagogastroduodenoscopy<sup>1</sup> [id number] 03/14/2018 GERD/SUPERFICIAL HEMORRHAGIC GASTRITIS.HIATAL HERNIA [facility] Influenza vaccination [id number] 01/21/2018 [facility] Screening mammography of bilateral breasts<sup>1</sup> [id number] 07/18/2017 IMPRESSION: BENIGN RECOMMENDATION:There is no mammographic evidence of malignancy. A 1 year screening mammogram is recommended.(07/19/2018) [facility] Screening mammography of bilateral breasts<sup>1</sup> [id number] 07/18/2017 IMPRESSION: BENIGN RECOMMENDATION:There is no mammographic evidence of malignancy. A 1 year screening mammogram is recommended.(07/19/2018) [facility] Screening mammography of bilateral breasts<sup>3</sup> [id number] 07/18/2017 IMPRESSION: BENIGN RECOMMENDATION:There is no mammographic evidence of malignancy. A 1 year screening mammogram is recommended.(07/19/2018) [facility] Screening mammography of bilateral breasts<sup>2</sup> [id number] 07/18/2017 IMPRESSION: BENIGN RECOMMENDATION:There is no mammographic evidence of malignancy. A 1 year screening mammogram is recommended.(07/19/2018) [facility] Diabetic retinal eye exam<sup>2</sup> [id number] 04/01/2017 [facility] (Dr. Zeng) [facility] Diabetic retinal eye exam<sup>4</sup> [id number] 04/01/2017 [facility] (Dr. Zeng) [facility] Diabetic retinal eye exam<sup>3</sup> [id number] 04/01/2017 [facility] (Dr. Zeng) [facility] Repair of rectocele [id number] 02/27/2017 [facility] Repair of rectocele [id number] 02/27/2017 [facility] [place] Colonoscopy<sup>2</sup> [id number] 10/16/2016 severe diverticulosis, hemorrhoids, repeat 10 years [facility] Colonoscopy<sup>1</sup> [id number] 10/16/2016 severe diverticulosis, hemorrhoids, repeat 10 years [facility] [place] Colonoscopy<sup>2</sup> [id number] 10/16/2016 severe diverticulosis, hemorrhoids, repeat 10 years [facility] [place] Colonoscopy<sup>1</sup> [id number] 10/16/2016 severe diverticulosis, hemorrhoids, repeat 10 years [facility] Colonoscopy<sup>3</sup> [id number] 10/16/2016 severe diverticulosis, hemorrhoids, repeat 10 years [facility] Colonoscopy<sup>5</sup> [id number] 10/16/2016 severe diverticulosis, hemorrhoids, repeat 10 years [facility] Colonoscopy<sup>4</sup> [id number] 10/16/2016 severe diverticulosis, hemorrhoids, repeat 10 years [facility] Influenza vaccination [id number] 04/01/2016 [facility] Screening mammography<sup>3</sup> [id number] 03/27/2016 negative [facility] Screening mammography<sup>2</sup> [id number] 03/27/2016 negative [facility] [place] Screening mammography<sup>3</sup> [id number] 03/27/2016 negative [facility] [place] Screening mammography<sup>2</sup> [id number] 03/27/2016 negative [facility] Screening mammography<sup>4</sup> [id number] 03/27/2016 negative [facility] Screening mammography<sup>6</sup> [id number] 03/27/2016 negative [facility] Screening mammography<sup>5</sup> [id number] 03/27/2016 negative [facility] Laparoscopic adjustable gastric banding [id number] 04/01/2013 [facility] Laparoscopic adjustable gastric banding [id number] 04/01/2013 [facility] [place] Laparoscopic adjustable gastric banding [id number] 04/01/2013 [place] Laparoscopic adjustable gastric banding [id number] 04/01/2013 [facility] [place] Arthroscopy of knee<sup>4</sup> [id number] Right knee [facility] Bilateral tubal ligation [id number] [facility] Cholecystectomy [id number] [facility] Hysterectomy [id number] [facility] Procedure on elbow joint<sup>5</sup> 260868594 Right elbow [facility] Arthroscopy of knee<sup>3</sup> 765556392 Right knee [facility] [place] Bilateral tubal ligation [id number] [facility] [place] Cholecystectomy [id number] [facility] [place] Hysterectomy [id number] [facility] [place] Procedure on elbow joint<sup>4</sup> 818134805 Right elbow [facility] [place] Arthroscopy of knee<sup>4</sup> 558088792 Right knee [facility] [place] Procedure on elbow joint<sup>5</sup> 068869464 Right elbow [facility] [place] Arthroscopy of knee<sup>3</sup> 537241639 Right knee [facility] Procedure on elbow joint<sup>4</sup> 828219582 Right elbow [facility] Arthroscopy of knee<sup>1</sup> 143019038 Right knee [facility] Bilateral tubal ligation 042353342 [facility] Cholecystectomy [id number] [facility] Hysterectomy 681765162 [facility] Procedure on elbow joint<sup>2</sup> 309634167 Right elbow [facility] Arthroscopy of knee<sup>5</sup> 268930066 Right knee [facility] Procedure on elbow joint<sup>6</sup> 191034348 Right elbow [facility] Arthroscopy of knee<sup>1</sup> 044336215 Right knee [facility] [place] Bilateral tubal ligation 891690041 [facility] [place] Cholecystectomy 09755599 [facility] [place] Hysterectomy 241243334 [facility] [place] Procedure on elbow joint<sup>2</sup> 671511131 Right elbow [facility] [place] Arthroscopy of knee<sup>7</sup> 104598452 Right knee [facility] Procedure on elbow joint<sup>8</sup> 419311351 Right elbow [facility] Arthroscopy of knee<sup>6</sup> 125772337 Right knee [facility] Procedure on elbow joint<sup>7</sup> [id number] Right elbow [facility]
--- OUTSIDE RECORDS SUMMARY | 2018-07-02 08:49 | XMS REPORT | Summary of Care ---
Author Author [facility] Organization [facility] Address Unknown Phone Unavailable Encounter HQ Ronna(FIN) [id number] Date(s): 12/02/17 - 12/03/17 [facility] [address] [place] [address]- Vital Signs No data available for this section Problem List Condition Effective Dates Status Health Status Informant Acute Active bronchitis(Confirmed ) Body mass index Active (BMI) of 34.0 to 34.9 in adult(Confirmed) Leg Active cramps(Confirmed) Acute Resolved diverticulitis(Confi rmed) Grieving(Confirmed) Active H/O laparoscopic Resolved adjustable gastric [...] nystatin Active losartan back pain Active Medications lisinopril 5 mg oral tablet 5 mg=1 tab, PO, Daily, # 90 tab, 1 Refill(s), Pharmacy: [facility] [id number] Start Date: 12/02/17 Stop Date: 03/02/18 Status: Ordered Results No data available for [...] None. Employment/School Status: Employed. 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 Alcohol Never, Previous treatment: None. Smoking Status Never smoker; Exposure to Tobacco Smoke None; Cigarette Smoking Last 365 Days No; Reg Smoking Cessation Counseling No entered on: 06/10/18 Assessment and Plan No data available for this section
--- OUTSIDE RECORDS SUMMARY | 2018-07-02 08:49 | XMS REPORT | Summary of Care ---
Author Author [facility] Organization [facility] Address Unknown Phone Unavailable Encounter HQ Grace_johanna(FIN) [id number] Date(s): 06/09/18 - 06/10/18 [facility] [address], [address] [place], [place] [address]- [phone] Vital Signs No data available for this [...] year screeni ng mammogram is recommended.(07/19/2018) [facility] (Dr. Zeng) 5severe diverticulosis, hemorrhoids, repeat 10 years 6negative 7Right knee 8Right elbow Social History Social History Type Response Substance Abuse Use: None. Employment/School Status: Employed. 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 Alcohol Never, Previous treatment: None. Smoking Status Never smoker; Exposure to Tobacco Smoke None; Cigarette Smoking Last 365 Days No; Reg Smoking Cessation Counseling No entered on: 06/10/18 Assessment and Plan No data available for this section
--- OUTSIDE RECORDS SUMMARY | 2018-07-02 08:49 | XMS REPORT | Summary of Care ---
Author Author [facility] Organization [facility] Address Unknown Phone Unavailable Encounter HQ Ronna(FIN) [id number] Date(s): 06/10/18 - 06/10/18 [facility] [address], [address] [place], [place] [address]- [phone] Discharge Disposition: Home or Self Care Attending Physician: Irish Jaramillo MD Vital Signs Most recent to 1 oldest [Reference Range]: Height 149.86 cm (06/10/18 8:52 AM) Temperature Oral 98.1 DegF [96.4-99.1 DegF] (06/10/18 8:52 AM) Blood Pressure 109/72 mmHg [90-140/60-90 mmHg] (06/10/18 8:52 AM) Respiratory Rate 16 BRMIN [14-20 BRMIN] (06/10/18 8:52 AM) Peripheral Pulse 81 bpm Rate [60-100 bpm] (06/10/18 8:52 AM) Weight 76.591 kg (06/10/18 8:52 AM) Body Mass Index 34.1 m2 (06/10/18 8:52 AM) Problem List Condition Effective Dates Status Health [...] nystatin Active losartan back pain Active Medications Azithromycin 5 Day Dose Pack 250 mg oral tablet See Instructions, Take 2 tablets by mouth the first day then 1 tablet by mouth d ays 2-5., X 5 day, # 6 tab, 0 Refill(s), Pharmacy: [facility] [id number] Start Date: 06/10/18 Stop Date: 06/15/18 Status: Ordered Cheratussin AC oral syrup 5 ml, PO, Q6H, PRN for cough and congestion, # 120 mL, 0 Refill(s) Start Date: 06/10/18 Stop Date: 06/11/19 Status: Ordered ProAir HFA 90 mcg/inh inhalation aerosol with adapter 2 puff, INHALER, Q6H, PRN wheezing, coughing, or shortness of breath, # 1 ea, 0 Refill(s), given to patient Start Date: 06/10/18 Status: Ordered Results No data available for [...] Use: None. Employment/School Status: Employed. 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 Alcohol Never, Previous treatment: None. Smoking Status Never smoker; Exposure to Tobacco Smoke None; Cigarette Smoking Last 365 Days No; Reg Smoking Cessation Counseling No entered on: 06/10/18 Assessment and Plan No data available for this section
--- OUTSIDE RECORDS SUMMARY | 2018-07-02 08:49 | XMS REPORT | Summary of Care ---
Author Author [facility] Organization [facility] Address Unknown Phone Unavailable Encounter LORENZA Friend(AMY) [id number] Date(s): 05/22/16 - 06/20/16 [facility] [address] [place] [address] [phone] Discharge Disposition: Home or Self Care Attending Physician: Bhupendra Cespedes MD Referring Physician: Bhupendra Cespedes MD Vital Signs No data available for this section Problem List Condition Effective Dates Status Health Status Informant Diabetes(Confirmed) Active Diverticulitis(Confi Resolved rmed) H/O: HTN Resolved (hypertension)(Confi rmed) H/O laparoscopic Active adjustable gastric banding(Confirmed)1 History of colonic Active polyps(Confirmed) Insomnia(Confirmed) Active Headache, Active migraine(Confirmed) Obesity(Confirmed) Active Palpitations(Confirm Resolved ed) Annual physical Resolved exam(Confirmed) Plantar fasciitis of Active right foot(Confirmed) Depression, major, Active single episode, moderate(Confirmed) Diabetes mellitus Active type 2, controlled, without complications(Confir med) 1lap band Allergies, Adverse Reactions, Alerts Substance Reaction Severity Status losartan back pain Active Medications No data available for this section Results No data available for this section Immunizations No data available for this section Procedures Procedure Date Related Diagnosis Body Site Laparoscopic adjustable gastric banding 2013 Arthroscopy of knee1 Bilateral tubal ligation Cholecystectomy Hysterectomy Procedure on elbow joint2 1Right knee 2Right elbow Social History Social History Type Response Substance Abuse Use: None. Employment/School Status: Employed. 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 Alcohol Never, Previous treatment: None. Smoking Status Never smoker; Exposure to Tobacco Smoke None; Cigarette Smoking Last 365 Days No; Reg Smoking Cessation Counseling No Assessment and Plan Extracted from: Title: Aftercare Visit note- Author: Roro Garza CORPORATE VP ADVERTISING & ONLINE Date: 05/22/16 Chief complaint Obesity and Overeating Patient is a patient of Dr Cespedes here Aftercare visit [facility]. Doing well denies any problems other than dysphgia with meal states she also wanted fluid removed for her upcoming trip. States increased stress. No vomitting or Heartburn or reflux reported. Weight: 160.6 Review of Systems: General:WNLWt. Gain NO Cardiovascular:WNL Respiratory:WNLAbdomen:WNL Extremities:WNLPsychiatric:WNL Physical Exam Information: General:Alert and OrientedObese Cardiovascular:NSRno M/G/R Respiratory:CTANon labored Abdomen:SNTno inflammation/swelling noted. Scars well healedNBS. Extremities:No Edema. Psychiatric:Judgment and insight normal and Mood and affect appear normal Provider Notes: Patient was seen by a gas burner operator prior to Visit with this provider. Patient Dietary recalled reviewed and well as weight loss goal. Patient was able to drink water in room post adjustment with no problems. Reviewed: Current MedicationsHealth/Weight Loss HistoryFamily/Social Surgical History Notes: Testing: Barium swallow completed with band at 2 oclock and pouch WNL flow restristed removed 1.0cc and Flow was improved. Adjustment Given following standard protocol: Consent form reviewed and signed Antiseptic skin prep performed Non coring needle used to access the port Access port: Palpation. Patient tolerated the procedure well, could drink water easily at completion and was given post adjustment instructions. Initial Volume 5.5 aspirated ml Add 0.0 ml Removed 1.0 ml Final Volume 5.5 ml PLAN: 1. 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 3.Personal weight loss Goal Setting discussed. 4.Increasing physical Activity 5.Red Zone education 6.Diet liquidx 1 weeks 7.Slow eating and slow drinking. 8.Educated on eating choices. Post-Adjustment instruction handout given to patient. Diet: Liquids__2 day/weekSoft foods_1 day/week Return for follow up: 3-4 wk Education: Provided to patient on Exercise and diet.Additional notes
--- OUTSIDE RECORDS SUMMARY | 2018-07-02 08:49 | XMS REPORT | Summary of Care ---
Author Author [facility] [place] Organization [facility] Address Unknown Phone Unavailable Encounter HQ Ronna(FIN) [id number] Date(s): 03/27/16 - 03/27/16 [facility] [place] [address] [place] [address] [phone] Discharge Disposition: Home or Self Care Attending [...] Use: None. Employment/School Status: Employed. 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 Alcohol Never, Previous treatment: None. Smoking Status Never smoker; Exposure to Tobacco Smoke None; Cigarette Smoking Last 365 Days No; Reg Smoking Cessation Counseling No Assessment and Plan No data available for this section
--- OUTSIDE RECORDS SUMMARY | 2018-07-02 08:49 | XMS REPORT | Summary of Care ---
Author Author [facility] Organization [facility] Address Unknown Phone Unavailable Encounter HQ Ronna(FIN) [id number] Date(s): 09/19/17 - 09/20/17 [facility] [address], [address] [place], [place] [address]- [phone] Vital Signs No data available for this section Problem List Condition Effective Dates Status Health Status Informant Body mass index Active (BMI) of 34.0 to 34.9 in adult(Confirmed) Leg Active cramps(Confirmed) Acute Active diverticulitis(Confi rmed) H/O laparoscopic Active adjustable gastric banding(Confirmed)1 History of colonic Active polyps(Confirmed) Hypertriglyceridemia Active (Confirmed) Urinary Active frequency(Confirmed) Insomnia(Confirmed) Active Low back Active pain(Confirmed) Headache, Resolved migraine(Confirmed) Obesity(Confirmed) Active Pain of right upper Active extremity(Confirmed) Palpitations(Confirm Resolved ed) Annual physical Active exam(Confirmed) 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) Screening for colon Active cancer(Confirmed) Thyroid disorder Active screen(Confirmed) Depression, major, Active single episode, moderate(Confirmed) Type 2 diabetes Active mellitus without complications(Confir med) Calcium oxalate Active crystals in urine(Confirmed) Vitamin D Active deficiency(Confirmed ) 1lap band Allergies, Adverse Reactions, Alerts Substance Reaction Severity Status losartan back pain Active Medications No data available for this section Results No data available for this section Immunizations No data available for this section Procedures Procedure Date Related Diagnosis Body Site Status Screening mammography of bilateral breasts1 07/18/17 Completed Diabetic retinal eye exam2 2017 Completed Repair of rectocele 02/27/17 Completed Colonoscopy3 10/16/16 Completed Influenza vaccination 2017 Completed Screening mammography4 03/27/16 Completed Laparoscopic adjustable gastric banding 2013 Completed Arthroscopy of knee5 Completed Bilateral tubal ligation Completed Cholecystectomy Completed Hysterectomy Completed Procedure on elbow joint6 Completed 1IMPRESSION: BENIGN RECOMMENDATION:There is no mammographic evidence of malignancy. A 1 year screeni ng mammogram is recommended.(07/19/2018) [facility] (Dr. Zeng) 3severe diverticulosis, hemorrhoids, repeat 10 years 4negative 5Right knee 6Right elbow Social History Social History Type Response Substance Abuse Use: None. Employment/School Status: Employed. 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 Alcohol Never, Previous treatment: None. Smoking Status Never smoker; Exposure to Tobacco Smoke None; Cigarette Smoking Last 365 Days No; Reg Smoking Cessation Counseling No entered on: 09/17/17 Assessment and Plan No data available for this section
--- OUTSIDE RECORDS SUMMARY | 2018-07-02 08:49 | XMS REPORT | Summary of Care ---
Author Author [facility] Organization [facility] Address Unknown Phone Unavailable Encounter HQ Grace_johanna(FIN) [id number] Date(s): 11/29/15 - 12/28/15 [facility] [address] [place] [address]- [phone] Discharge Disposition: Home or Self Care Attending Physician: Bhuepndra Cespedes MD Referring Physician: Bhupendra Cespedes MD [...] Use: None. Employment/School Status: Employed. 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 Alcohol Never, Previous treatment: None. Smoking Status Never smoker; Exposure to Tobacco Smoke None; Cigarette Smoking Last 365 Days No; Reg Smoking Cessation Counseling No Assessment and Plan No data available for this section
--- OUTSIDE RECORDS SUMMARY | 2018-07-02 08:49 | XMS REPORT | Summary of Care ---
Author Author [facility] Organization [facility] Address Unknown Phone Unavailable Encounter LORENZA Friend(AMY) [id number] Date(s): 11/07/15 - 11/07/15 [facility] [address] [place] [address]- Discharge Disposition: Home or Self Care Attending Physician: Bhupendra Cespedes MD Referring Physician: Bhupendra Cespedes MD Vital Signs 1 2 3 Most recent to oldest [Reference Range]: 149.86 cm (11/04/15 9:14 AM) Height 97.1 DegF (11/04/15 9:38 AM) Temperature Oral [96.4-99.1 DegF] 117/68 mmHg (11/07/15 10:15 AM) 107/68 mmHg (11/07/15 10:00 AM) 99/59 mmHg (11/07/15 9:47 AM) Blood Pressure [90-140/60-90 mmHg] 16 BRMIN (11/07/15 10:15 AM) 15 BRMIN (11/07/15 10:00 AM) 17 BRMIN (11/07/15 9:47 AM) Respiratory Rate [14-20 BRMIN] 64 bpm (11/07/15 8:53 AM) 58 bpm *LOW* (11/04/15 9:38 AM) Peripheral Pulse Rate [60-100 bpm] 75.909 kg (11/04/15 9:14 AM) Weight 33.8 m2 (11/04/15 9:14 AM) Body Mass Index Problem List Condition Effective Dates Status Health [...] Severity Status losartan back pain Active Medications Sodium Chloride 0.9% IV 1000 mL 1,000 mL, Rate: 25 ml/hr, Infuse over: 40 hr, Route: IV, Dosing Weight 75.909 kg , Total Volume: 1,000, Start date: 11/07/15 8:40:00 CDT, Duration: 30 day, Stop date: 12/07/15 8:39:00 CDT Start Date: 11/07/15 Stop Date: 11/07/15 Status: Discontinued Results ELECTROLYTES Most recent to 1 oldest [Reference Range]: Sodium Lvl [135-145 140 mEq/L mEq/L] (11/04/15 9:20 AM) Potassium Lvl 3.7 mEq/L [3.5-5.1 mEq/L] (11/04/15 9:20 AM) Chloride Lvl [95-109 108 mEq/L mEq/L] (11/04/15 9:20 AM) CO2 [24-32 mEq/L] 25 mEq/L (11/04/15 9:20 AM) AGAP [10.0-20.0 10.7 mEq/L mEq/L] (11/04/15 9:20 AM) CHEM PANEL Most recent to 1 oldest [Reference Range]: Creatinine Lvl 0.39 mg/dL [0.50-1.40 mg/dL] *LOW* (11/04/15 9:20 AM) eGFR 123 mL/min/1.73m2 1 *NA* (11/04/15 9:20 AM) BUN [7-22 mg/dL] 7 mg/dL (11/04/15 9:20 AM) Glucose Lvl [70-99 125 mg/dL mg/dL] *HI* (11/04/15 9:20 AM) Calcium Lvl 8.3 mg/dL [8.5-10.5 mg/dL] *LOW* (11/04/15 9:20 AM) 1Result Comment: The eGFR is calculated using the [...] from the National Kidney Disease Education Program ( NKDEP) which additionally recommends that when the eGFR is used in patients with extremes of body mass index for purposes of drug dosing, the eGFR should be mul tiplied by the estimated BMI. HEMATOLOGY Most recent to 1 oldest [Reference Range]: WBC [3.7-10.4 K/CMM] 7.9 K/CMM (11/04/15 9:20 AM) RBC [4.20-5.40 4.39 M/CMM M/CMM] (11/04/15 9:20 AM) Hgb [12.0-16.0 g/dL] 12.6 g/dL (11/04/15 9:20 AM) Hct [36.0-48.0 %] 38.0 % (11/04/15 9:20 AM) MCV [80.0-98.0 fL] 86.6 fL (11/04/15 9:20 AM) MCH [27.0-31.0 pg] 28.8 pg (11/04/15 9:20 AM) MCHC [32.0-36.0 33.2 g/dL g/dL] (11/04/15 9:20 AM) RDW [11.5-14.5 %] 13.9 % (11/04/15 9:20 AM) Platelet [133-450 284 K/CMM K/CMM] (11/04/15 9:20 AM) MPV [7.4-10.4 fL] 8.8 fL (11/04/15 9:20 AM) Segs [45.0-75.0 %] 61.2 % (11/04/15 9:20 AM) Lymphocytes 31.5 % [20.0-40.0 %] (11/04/15 9:20 AM) Monocytes [2.0-12.0 5.8 % %] (11/04/15 9:20 AM) Eosinophils [0.0-4.0 1.0 % %] (11/04/15 9:20 AM) Basophils [0.0-1.0 0.5 % %] (11/04/15 9:20 AM) Segs-Bands # 4.8 K/CMM [1.5-8.1 K/CMM] (11/04/15 9:20 AM) Lymphocytes # 2.5 K/CMM [1.0-5.5 K/CMM] (11/04/15 9:20 AM) Monocytes # [0.0-0.8 0.5 K/CMM K/CMM] (11/04/15 9:20 AM) Eosinophils # 0.1 K/CMM [0.0-0.5 K/CMM] (11/04/15 9:20 AM) Immunizations No data available for this section Procedures Procedure Date Related Diagnosis Body Site Laparoscopic adjustable gastric banding 2014 Arthroscopy of knee1 Bilateral tubal ligation Cholecystectomy Hysterectomy Procedure on elbow joint2 1Right knee 2Right elbow Social History Social History Type Response Substance Abuse Use: None. Employment/School Status: Employed. 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 Alcohol Never, Previous treatment: None. Smoking Status Never smoker; Exposure to Tobacco Smoke None; Cigarette Smoking Last 365 Days No; Reg Smoking Cessation Counseling No Assessment and Plan No data available for this section
--- OUTSIDE RECORDS SUMMARY | 2018-07-02 08:49 | XMS REPORT | Summary of Care ---
Author Author [facility] Organization [facility] Address Unknown Phone Unavailable Encounter LORENZA Friend(FIN) [id number] Date(s): 04/12/16 - 05/11/16 [facility] [address] [place] [address]- Discharge Disposition: Home or Self Care Attending [...] Use: None. Employment/School Status: Employed. 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 Alcohol Never, Previous treatment: None. Smoking Status Never smoker; Exposure to Tobacco Smoke None; Cigarette Smoking Last 365 Days No; Reg Smoking Cessation Counseling No Assessment and Plan No data available for this section
--- OUTSIDE RECORDS SUMMARY | 2018-07-02 08:49 | XMS REPORT | Summary of Care ---
Author Author [facility] Organization [facility] Address Unknown Phone Unavailable Encounter HQ Ronna(FIN) [id number] Date(s): 09/17/17 - 09/17/17 [facility] [address], [address] [place], [place] [address]- [phone] Discharge Disposition: Home or Self Care Attending Physician: Irish Jaramillo MD Vital Signs Most recent to 1 oldest [Reference Range]: Height 149.86 cm (09/17/17 1:43 PM) Temperature Oral 98.7 DegF [96.4-99.1 DegF] (09/17/17 1:43 PM) Blood Pressure 129/83 mmHg [90-140/60-90 mmHg] (09/17/17 1:43 PM) Respiratory Rate 16 BRMIN [14-20 BRMIN] (09/17/17 1:43 PM) Peripheral Pulse 74 bpm Rate [60-100 bpm] (09/17/17 1:43 PM) Weight 77.727 kg (09/17/17 1:43 PM) Body Mass Index 34.61 m2 (09/17/17 1:43 PM) Problem List Condition Effective Dates Status [...] Severity Status losartan back pain Active Medications fenofibrate 54 mg oral tablet 54 mg=1 tab, PO, Daily, # 90 tab, 1 Refill(s), [facility] [id number] Start Date: 09/17/17 Status: Ordered metFORMIN 1000 mg oral tablet 1,000 mg=1 tab, PO, BID, # 180 tab, 1 Refill(s), [facility] [address] Start Date: 09/17/17 Stop Date: 03/16/18 Status: Ordered Results No data available for [...] None. Employment/School Status: Employed. 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 Alcohol Never, Previous treatment: None. Smoking Status Never smoker; Exposure to Tobacco Smoke None; Cigarette Smoking Last 365 Days No; Reg Smoking Cessation Counseling No entered on: 09/17/17 Assessment and Plan No data available for this section
--- OUTSIDE RECORDS SUMMARY | 2018-07-02 08:49 | XMS REPORT | Summary of Care ---
Author Author Renea Rodriguez R.N. Organization Unknown Address [facility] Phone Unavailable Care Team Providers Care Production Intern Name Role Phone Renea Rodriguez R.N. Unavailable Unavailable PAOLA HOLLINS, GARETH BRADY Unavailable Unavailable Functional Status Name Dates Details Functional status health issues are not documented Status: Name Dates Details Cognitive status health issues are not documented Status: Problems Name Dates Details Acute pain of right shoulder (719.41, M25.511) Status: Active Strain of muscle(s) and tendon(s) of the rotator cuff of right shoulder, initial encounter (840.4, S46.011A) Status: Active Medications Name Dates Details Medications not documented Allergies and Adverse Reactions Name Dates Details Allergy history not documented Status: Procedures Procedure Dates Details MR Shoulder wo contrast [id number] Date: 26-Jul-2017 Immunization Name Dates Details Immunizations not documented Social History Name Dates Details Unknown if ever smoked Vital Signs Date Test Result Details No Known Vitals to report Results Date Description Value Details [id number] [U] XRAY SHOULDER MIN 2 VWS RIGHT [id number] XR SHOULDER MIN 2 VWS RIGHT Images acquired, not reported on this accession number. Plan of Care Name Dates Details Planned Observations Planned Goals not documented Interventions Provided Labs/Procedures/Imaging* MR Shoulder wo contrast [id number]; To Be Done: 26 Jul 2017 Instructions Name Dates Details Instructions not documented Encounters Appointment; Titus Mcfarland M.D. Encounter Diagnosis: Problem not documented On: 18-Jul-2017 13:00
--- OUTSIDE RECORDS SUMMARY | 2018-07-02 08:49 | XMS REPORT | Summary of Care ---
Author Author [facility] Organization [facility] Address Unknown Phone Unavailable Encounter LORENZA Friend(AMY) [id number] Date(s): 03/08/16 - 04/06/16 [facility] [address] [place] [address]- Discharge Disposition: Home or Self Care Attending [...] Use: None. Employment/School Status: Employed. 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 Alcohol Never, Previous treatment: None. Smoking Status Never smoker; Exposure to Tobacco Smoke None; Cigarette Smoking Last 365 Days No; Reg Smoking Cessation Counseling No Assessment and Plan No data available for this section
--- OUTSIDE RECORDS SUMMARY | 2018-07-02 08:49 | XMS REPORT | Summary of Care ---
Author Author [facility] Organization [facility] Address Unknown Phone Unavailable Encounter LORENZA Friend(AMY) [id number] Date(s): 07/03/16 - 08/01/16 [facility] [address] [place] [address]- Discharge Disposition: Home or Self Care Attending Physician: Bhupendra Cespedes MD Referring Physician: Roro Garza NP Vital Signs No data available for this section Problem List Condition Effective Dates Status Health Status Informant Acute Active diverticulitis(Confi rmed) H/O laparoscopic Active adjustable gastric banding(Confirmed)1 History of colonic Active polyps(Confirmed) Urinary Active frequency(Confirmed) Insomnia(Confirmed) Active Headache, Resolved migraine(Confirmed) Obesity(Confirmed) Active Palpitations(Confirm Resolved ed) Annual physical Active exam(Confirmed) Screening for colon Active cancer(Confirmed) Depression, major, Active single episode, moderate(Confirmed) Diabetes [...] Use: None. Employment/School Status: Employed. 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 Alcohol Never, Previous treatment: None. Smoking Status Never smoker; Exposure to Tobacco Smoke None; Cigarette Smoking Last 365 Days No; Reg Smoking Cessation Counseling No Assessment and Plan Extracted from: Title: Aftercare Clinic Visit note. Author: Roro Gazra NP Date: 07/03/16 Chief complaint Obesity and Overeating Patient is a patient of Dr Cespedes here Aftercare visit [facility]. Doing well denies any problems. Denies any heart burn reflux and nausea or vomiting. Recently returned from her vacation to [facility]. Weight: 169.2 Blood pressure was 142/89 and Heart Rate 68 Review of Systems: General:WNLWt. Gain YES 9.2 since last visit. Cardiovascular:WNL Respiratory:WNLAbdomen:WNL Extremities:WNLPsychiatric:WNL Physical Exam Information: General:Alert and OrientedObese Cardiovascular:NSRno M/G/R Respiratory:CTANon labored Abdomen:SNTno inflammation/swelling noted. Scars well healedNBS. Extremities:No Edema. Psychiatric:Judgment and insight normal and Mood and affect appear normal Provider Notes: Patient was seen by a post acute care registered nurse post to Visit with this provider. Patient Dietary recalled reviewed and well as weight loss goal. Patient was able to drink water in room post adjustment with no problems. Reviewed: Current Medications: Only taking metformin 500mg po dialy for diabetes. Health/Weight Loss HistoryFamily/Social Surgical History Notes: Testing: Barium Swallow completed with Pouch wnl and flow wnl and band position at 2 oclock. added 0.7 cc to the band.Post adjustment barium swallow with improved restriction to flow through the band. no changes to pouch and band position. Adjustment Given following standard protocol: Consent form reviewed and signed Antiseptic skin prep performed Non coring needle used to access the port Access port: Palpation. Patient tolerated the procedure well, could drink water easily at completion and was given post adjustment instructions. Initial Volume 4.5 aspirated ml Add 0.7 ml Removed ml Final Volume 5.2 ml PLAN: 1. Propulsion Systems Engineer completed with Marino Herrera 2.Support Group participation encouraged. will send email with details for Sade meetings. 3.Personal weight loss Goal Setting discussed. 4.Increasing physical Activity daily exercise for 15-30mins 5.Patient is scheduled to follow up with PCP at he end and states would prefer to have lab work completed with PCP. 6.Patient will be emailed a sample list recommended lab for PCP use. 7.Patient as also referred to Dr Hilda Camacho for medical weight management. She is interested in adjunt therapy with Medications. Patient was shown exercises by RD to incorporate into her routine. Number for Dr Camacho provided to patient. 8.Patient was strongly encouraged to start on Bariatric Multivitamin. [employer] will be called into her Pharmacy. She also can contact Dr Cespedes for alternate vitamin Recommendation and purchase. 9.Slower eating and smaller portions. 10.Improving food choices ( avoiding vanilla wafers as snacks and well as limiting high fat diet such as Chicken Enchilladas) 11.Return to clinic in 8 weeks. Patient will call [phone] to make appt. 12.Also Yoga video was also provider for patient. Post-Adjustment instruction handout given to patient. Diet: Liquids__2 day/weekSoft foods_1 day/week Return for follow up: 8 wk Education: Provided to patient on Exercise and diet.Additional notes
--- OUTSIDE RECORDS SUMMARY | 2018-07-02 08:49 | XMS REPORT | Summary of Care ---
Author Author [facility] Organization [facility] Address Unknown Phone Unavailable Encounter HQ Ronna(FIN) [id number] Date(s): 10/23/17 - 10/23/17 [facility] [address], [address] [place], [place] [address]- [phone] Discharge Disposition: Home or Self Care Attending Physician: Irish Jaramillo MD Vital Signs Most recent to 1 oldest [Reference Range]: Height 149.86 cm (10/23/17 1:29 PM) Temperature Oral 98.4 DegF [96.4-99.1 DegF] (10/23/17 1:29 PM) Blood Pressure 109/73 mmHg [90-140/60-90 mmHg] (10/23/17 1:29 PM) Respiratory Rate 16 BRMIN [14-20 BRMIN] (10/23/17 1:29 PM) Peripheral Pulse 76 bpm Rate [60-100 bpm] (10/23/17 1:29 PM) Weight 77.784 kg (10/23/17 1:29 PM) Body Mass Index 34.64 m2 (10/23/17 1:29 PM) Problem List Condition Effective Dates Status Health Status Informant Body mass index Active (BMI) of 34.0 to 34.9 in adult(Confirmed) Leg Active cramps(Confirmed) Depression(Confirmed Resolved ) Diabetes(Confirmed) Active Acute Resolved diverticulitis(Confi rmed) Epigastric Active fullness(Confirmed) H/O laparoscopic Active adjustable gastric banding(Confirmed)1 History of colonic Active polyps(Confirmed) Hypertriglyceridemia Active (Confirmed) Hypertriglyceridemia Active (Confirmed) Insomnia(Confirmed) Active Low back Active pain(Confirmed) Headache, Resolved migraine(Confirmed) Obesity(Confirmed) Active Palpitations(Confirm Resolved ed) Encounter for [...] Active losartan back pain Active Medications No Known Medications Results No data available for this section Immunizations Given and Recorded Vaccine Date Status Refusal Reason influenza virus vaccine, inactivated1 01/21/18 Given 1Result Comment: Patient waited 15 min with no reaction. Procedures Procedure Date Related Diagnosis Body Site Status Esophagogastroduodenoscopy1 03/14/18 Completed Influenza vaccination 01/21/18 Completed Screening mammography of bilateral breasts2 07/18/17 Completed Diabetic retinal eye exam3 2017 Completed Repair of rectocele 02/27/17 Completed Colonoscopy4 10/16/16 Completed Screening mammography5 03/27/16 Completed Laparoscopic adjustable gastric banding 2013 Completed Arthroscopy of knee6 Completed Bilateral tubal ligation Completed Cholecystectomy Completed Hysterectomy Completed Procedure on elbow joint7 Completed 1GERD/SUPERFICIAL HEMORRHAGIC GASTRITIS.HIATAL HERNIA 2IMPRESSION: BENIGN RECOMMENDATION:There is no mammographic evidence of malignancy. A 1 year screeni ng mammogram is recommended.(07/19/2018) 3[facility] (Dr. Zeng) 4severe diverticulosis, hemorrhoids, repeat 10 years 5negative 6Right knee 7Right elbow Social History Social History Type Response Substance Abuse Use: None. Employment/School Status: Employed. 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 Alcohol Never, Previous treatment: None. Smoking Status Never smoker; Exposure to Tobacco Smoke None; Cigarette Smoking Last 365 Days No; Reg Smoking Cessation Counseling No entered on: 03/20/18 Assessment and Plan No data available for this section
[2018-07-02 09:16] LABS: COLOR,URINE YELLOW (YELLOW)
[2018-07-02 09:17] LABS: BILIRUBIN,URINE NEGATIVE (NEGATIVE); CLARITY,URINE CLEAR (CLEAR); KETONES,URINE NEGATIVE (NEGATIVE); LEUKOCYTE ESTERASE ,URINE NEGATIVE (NEGATIVE); NITRITE,URINE NEGATIVE (NEGATIVE); PROTEIN,URINE DIPSTICK NEGATIVE (NEGATIVE); URINE UROBILINOGEN 0.2 mg/dL (0.2 - 1)
[2018-07-02] MEDS ORDERED: ONDANSETRON HCL INJ 2MG/ML 2ML 2 MG/ML VIAL IV STA (09:19)
[2018-07-02 09:25] LABS: EPITHELIAL CELLS,URINE RARE /LPF
[2018-07-02] MEDS ORDERED: HYDROMORPHONE 2MG/ML 2 MG/ML ML IV ONE (09:30)
--- NOTE | 2018-07-02 11:14 | Diagnostic Imaging Report ---
EXAM: CT Abdomen and Pelvis WITHOUT contrast INDICATION: Right flank pain. COMPARISON: None. TECHNIQUE: Abdomen and pelvis were scanned utilizing a multidetector helical scanner from the lung base to the pubic symphysis without administration of IV contrast. Absence of intravenous contrast decreases sensitivity for detection of focal lesions and vascular pathology. Coronal and sagittal reformations were obtained. Stone protocol is performed. RADIATION DOSE: Total DLP: 723.8 mGy*cm Estimated effective dose: (DLP x 0.014 x size factor) mSv Dose modulation, iterative reconstruction, and/or weight based adjustment of the mA/kV was utilized to reduce the radiation dose to as low as reasonably achievable. COMPLICATIONS: None FINDINGS: LINES and TUBES: None. LOWER THORAX: Patchy dependent atelectasis. There is a 3 mm subpleural solid nodule in the right middle lobe on series 3, image 19. HEPATOBILIARY: Mild fatty liver. No evidence of focal hepatic lesions. No biliary ductal dilation. Status post cholecystectomy. SPLEEN: No splenomegaly. PANCREAS: No focal masses or ductal dilatation. ADRENALS: No adrenal nodules KIDNEYS/URETERS: No hydronephrosis. No cystic or solid mass lesions. There is a 5 mm left mid pole renal stone and a 1 mm left lower pole renal stone. GI TRACT: No abnormal distention, wall thickening, or evidence of bowel obstruction. There is scattered colonic diverticulosis, most pronounced in the sigmoid colon, without CT evidence of diverticulitis. Appendix is normal. PELVIC ORGANS/BLADDER: The uterus is absent. LYMPH NODES: No lymphadenopathy. VESSELS: Unremarkable. PERITONEUM / RETROPERITONEUM: No free air or fluid. BONES: No acute osseous abnormality. Nonspecific sclerotic focus within the right femoral head. SOFT TISSUES: Fat-containing umbilical hernia. There is mild stranding along the inferior aspect of umbilical hernia. IMPRESSION: Nonobstructing left-sided renal stones measuring up to 5 mm. No evidence of right-sided stone. Mild fatty liver. Fat-containing umbilical hernia with mild stranding along the inferior aspect, which may reflect inflammatory changes. Suggest clinical correlation for presence of pain at this location. A 3 mm subpleural solid nodule in the right middle lobe. Findings are likely benign in a low risk patient. If the patient is at high risk for malignancy, an optional follow-up chest CT may be considered in 12 months. Signed by: Dr. Woody Guaman MD on 07/02/2018 11:11 AM
[2018-07-02 12:44] VITALS: BP 132/76
== END 2018-07-02 13:13 | disposition home or self-care (01) ==
LOC: ER 08:45
DX: M54.5 Low back pain (principal); R10.31 Right lower quadrant pain; M54.16 Radiculopathy, lumbar region; I10 Essential (primary) hypertension; E11.9 Type 2 diabetes mellitus without complications
CPT/HCPCS: 74176; 81001; 99284; J1170; J2405

== ENCOUNTER → 2019-02-13 | Day surgery (SDC) | payer OTHER ==
[2019-02-09 15:25] LABS: BASOPHILS # (AUTO) 0.1 (0.0-0.1); BASOPHILS % 0.7 % (0.0-1.0); EOSINOPHILS # (AUTO) 0.2 (0.0-0.4); EOSINOPHILS % 2.4 % (0.0-6.0); HEMATOCRIT 39.4 % (34.2-44.1); HEMOGLOBIN 12.7 g/dL (12.0-16.0); LYMPHOCYTES # (AUTO) 3.1 (1.0-3.2); LYMPHOCYTES % 33.7 % (18.0-39.1); MEAN CORPUSCULAR HGB CONC 32.2 g/dL (31-35); MONOCYTES # (AUTO) 0.6 (0.2-0.8); MONOCYTES % 6.5 % (4.4-11.3); NEUTROPHILS # (AUTO) 5.1 (2.1-6.9); NEUTROPHILS % 56.4 % (38.7-80.0); PLATELET COUNT 318 x10e3/uL (140-360); RED BLOOD COUNT 4.38 x10e6/uL (3.6-5.1); RED CELL DISTRIBUTION WIDTH 13.2 % (11.7-14.4)
[2019-02-09 15:42] LABS: ANION GAP 12.3 mmol/L (8-16); BLOOD UREA NITROGEN 11 mg/dL (7-26); BUN/CREATININE RATIO 18 (6-25); CALCIUM 9.4 mg/dL (8.4-10.2); CARBON DIOXIDE 26 mmol/L (22-29); CHLORIDE 106 mmol/L (98-107); CREATININE, SERUM 0.61 mg/dL (0.57-1.11); EST GLOMERULAR FILTRATION RATE > 60 ML/MIN (60-); GLUCOSE 99 mg/dL (74-118); POTASSIUM 3.3 mmol/L (3.5-5.1); SODIUM 141 mmol/L (136-145)
[~2019-02-13] MED LIST: ACETAMINOPHEN 1000 MG/100 ML 100 ML IV ONE; ACETAMINOPHEN 1000 MG/100 ML IV ONE; ASPIRIN81 MG PO; BUPIVACAINE 0.25%/EPI 30ML SDV INJ ONE; DESFLURANE 240 ML BTL INH ONE; DEXAMETHASONE SOD PHOS INJ 4 MG/ML VIAL ONE; FENOFIBRATE145 MG PO; FENTANYL CITRATE/PF 100MCG/2 ML INJ ONE; GLYCOPYRROLATE INJ 1MG/ 5 ML SYR ONE; KETOROLAC TROMETHAMINE 30 MG/ML VIAL ONE; LABETALOL HCL 5 MG/ML 20ML VIAL ONE; LIDOCAINE HCL 2% LOCAL INJ 5 ML SDV VIAL INJ ONE; LISINOPRIL2.5 MG PO; METFORMIN HCL850 MG PO; MIDAZOLAM HCL 2 MG/2 ML VIAL ONE; NEOSTIGMINE 5 MG/5ML SYR ONE; ONDANSETRON HCL INJ 2MG/ML 2ML 2 MG/ML VIAL ONE; PANTOPRAZOLE SO40 MG PO; PROPOFOL IV EMULSION 10 MG/ML 20 ML VIAL ONE; SUGAMMADEX SODIUM 200 MG/2 ML VIAL IV ONE; TRULICITY SQ
[2019-02-13 09:57] LABS: ANION GAP 11.6 mmol/L (8-16); BLOOD UREA NITROGEN 8 mg/dL (7-26); BUN/CREATININE RATIO 13 (6-25); CALCIUM 9.1 mg/dL (8.4-10.2); CARBON DIOXIDE 25 mmol/L (22-29); CHLORIDE 107 mmol/L (98-107); EST GLOMERULAR FILTRATION RATE > 60 ML/MIN (60-); GLUCOSE 120 mg/dL (74-118); POTASSIUM 3.6 mmol/L (3.5-5.1); SODIUM 140 mmol/L (136-145)
[2019-02-13 13:53] VITALS: BP 120/77
--- NOTE | 2019-02-13 18:44 | Operative Report ---
DATE OF PROCEDURE: 02/13/2019 SURGEON: Charlie Diehl MD PREOPERATIVE DIAGNOSIS: Ventral hernia. POSTOPERATIVE DIAGNOSIS: Ventral hernia. OPERATION PERFORMED: Repair of ventral hernia with mesh. SECURITIES TRADER: RICARDA Bell. ANESTHESIA: General endotracheal. COMPLICATIONS: None. ESTIMATED BLOOD LOSS: Minimal. DESCRIPTION OF PROCEDURE: With the patient lying in bed in the supine position under good general endotracheal anesthesia, the abdomen was prepped with Betadine solution and draped in the usual manner. A transverse incision was made in the epigastric area overlying the palpable bulge. It was carried down through the subcutaneous tissue. Immediately, the hernia sac was encountered. The fascia was then dissected all the way around the hernia defect and a good normal fascia was identified all around. After this was done, the hernia sac was then slowly and carefully opened and resected. All of the underlying adhesions were taken down and the underlying area was freed up. A large Ventralex patch was then placed intra-abdominally and was then tacked with interrupted sutures of #0 Ethibond. The hernia defect was then closed also with interrupted #0 Ethibond anchoring the mesh on the way out. The whole area was then thoroughly irrigated. Perfect hemostasis was ascertained. The fascia was infiltrated with 0.25% Marcaine. Subcutaneous tissue was approximated with 2-0 Vicryl and the skin was closed with clips. A dressing was applied. The sponge, lap, and needle count was correct. The patient tolerated the procedure well and returned to the recovery room in stable condition. Charlie Diehl MD JLR/MODL /[id number]
== END | disposition home or self-care (01) ==
LOC: OR 07:29
PROVIDERS: ATTEND Surgery
DX: K43.9 Ventral hernia without obstruction or gangrene (principal); Z01.810 Encounter for preprocedural cardiovascular examination; Z01.812 Encounter for preprocedural laboratory examination; Z88.2 Allergy status to sulfonamides; Z88.8 Allergy status to other drugs, medicaments and biological substances; E11.9 Type 2 diabetes mellitus without complications; K58.9 Irritable bowel syndrome, unspecified; Z87.442 Personal history of urinary calculi; I10 Essential (primary) hypertension; Z79.84 Long term (current) use of oral hypoglycemic drugs; Z79.82 Long term (current) use of aspirin
CPT/HCPCS: 36415 ×2; 49560; 49568; 80048 ×2; 82948; 85025; C1781; J0131; J1100; J1885; J2001; J2250; J2405; J2704; J3010; J3490 ×2